=== PATIENT | female | born 1995 | race Caucasian/White ===

== ENCOUNTER 2017-04-26 18:31 | Emergency (ER) | payer BC ==
[2017-04-26 18:48] VITALS: BP 107/71
--- NOTE | 2017-04-26 20:11 | UC ---
Complaint Female HPI - HPI Summary HPI Summary: pain and burning with urination began today-no fever chills, nausea vomiting or back pain - History Of Current Complaint Chief Complaint: UCGU Stated Complaint: UTI Time Seen by Provider: 04/26/17 18:54 Hx Obtained From: Patient Hx Last Menstrual Period: 1 1/2 weeks ago ?: No Onset/Duration: Sudden Onset Timing: Constant Severity Initially: Moderate Severity Currently: Moderate Pain Intensity: 4 Pain Scale Used: 0-10 Numeric Character: Burning Aggravating Factor(s): Urination Alleviating Factor(s): Other Associated Signs And Symptoms: Positive: Negative - Allergies/Home Medications Allergies/Adverse Reactions: Allergies Allergy/AdvReac Type Severity Reaction Status Date / Time Amoxicillin Allergy Hives Verified 04/26/17 18:48 Bee Sting Allergy Swelling Uncoded 04/26/17 18:48 Home Medications: Home Medications Levothyroxine 1 tab PO DAILY 04/26/17 [History Confirmed 04/26/17] PMH/Surg Hx/FS Hx/Imm Hx Previously Healthy: Yes - Surgical History Surgical History: None - Family History Known Family History: Positive: None - Social History Occupation: Employed Full-time Lives: With Family Alcohol Use: Occasionally Substance Use Type: None Smoking Status (MU): Never Smoked Tobacco Review of Systems Constitutional: Negative Skin: Negative Eyes: Negative ENT: Negative Respiratory: Negative Cardiovascular: Negative Gastrointestinal: Negative Genitourinary: Negative, Dysuria, Hematuria, Frequency Motor: Negative Neurovascular: Negative Musculoskeletal: Negative Neurological: Negative Psychological: Negative Is Patient Immunocompromised?: No All Other Systems Reviewed And Are Negative: Yes Physical Exam Triage Information Reviewed: Yes Appearance: Well-Appearing, No Pain Distress, Well-Nourished Vital Signs: Initial Vital Signs Temp 98.6 F 04/26/17 18:44 Pulse 85 04/26/17 18:44 Resp 16 04/26/17 18:44 BP 107/71 04/26/17 18:44 Pulse Ox 100 04/26/17 18:44 Vital Signs Reviewed: Yes Eye Exam: Normal Eyes: Positive: Conjunctiva Clear ENT Exam: Normal ENT: Positive: Normal ENT inspection, Hearing grossly normal. Negative: Nasal congestion, Nasal drainage, Trismus, Muffled/hoarse voice Dental Exam: Normal Neck exam: Normal Neck: Positive: Supple, Nontender Respiratory Exam: Normal Respiratory: Positive: No respiratory distress, No accessory muscle use Cardiovascular Exam: Normal Cardiovascular: Positive: RRR, Brisk Capillary Refill Abdominal Exam: Normal Abdomen Description: Positive: Nontender, No Organomegaly, Soft. Negative: CVA Tenderness (R), CVA Tenderness (L), Hepatomegaly, McBurney's Point Tenderness, Peritoneal Signs, Pulsatile Mass, Splenomegaly Bowel Sounds: Positive: Present Musculoskeletal Exam: Normal Musculoskeletal: Positive: Strength Intact, ROM Intact Neurological Exam: Normal Neurological: Positive: Alert, Muscle Tone Normal Psychological Exam: Normal Skin Exam: Normal Diagnostics - Laboratory Diagnostic Studies Completed/Ordered: ua + leuk +blood Complaint Female Dx - Course Course Of Treatment: Macrobid, azo increase fluids, culture urine follow with pcp prn - Differential Dx/Diagnosis Differential Diagnosis/HQI/PQRI: Pelvic Inflammatory Disease, , Renal Colic, Sexually Transmitted Disease, Ureteral Stone, Urinary Tract Infection Provider Diagnoses: UTI Discharge - Discharge Plan Condition: Stable Disposition: HOME Prescriptions: Nitrofurantoin Monohyd Macro [Macrobid] 100 mg PO BID #20 cap Phenazopyridine TAB* [Pyridium 100 mg TAB*] 100 mg PO TID PRN #6 tab PRN Reason: urinary burning Patient Education Materials: Urinary Tract Infection in Women (ED) Referrals: [facility] [Outside] - If Needed
--- NOTE | 2017-04-28 17:07 | UC ---
Progress - Progress Note Progress Note: NO CHANGE
== END 2017-04-26 20:26 | disposition home or self-care (01) ==
LOC: UCEAST 18:31
DX: N39.0 Urinary tract infection, site not specified (principal); B96.20 Unspecified Escherichia coli [E. coli] as the cause of diseases classified elsewhere; R31.9 Hematuria, unspecified; Z32.02 Encounter for pregnancy test, result negative; Z88.1 Allergy status to other antibiotic agents; Z91.030 Bee allergy status
CPT/HCPCS: 81003; 84702; 87077; 87086; 87186; 99212; G0463

== ENCOUNTER 2017-06-10 08:16 | Emergency (ER) | payer BC ==
[2017-06-10] MEDS ORDERED: Ketorolac INJ* 30 MG/ML 1 ML VIAL IV ONE (09:22)
[2017-06-10] MEDS ORDERED: NS 0.9% 1000 ML* 1,000 ML IV ONE (09:22)
[2017-06-10] MEDS ORDERED: Metoclopramide IV* 5 MG/ML 2 ML VIAL IV ONE (09:22)
[2017-06-10 09:44] LABS: Hematocrit 41 % (35-47); Hemoglobin 14.2 g/dl (12.0-16.0); Mean Corpuscular HGB Conc 35 g/dl (31-36); Mean Corpuscular Hemoglobin 29 pg (27-31); Mean Corpuscular Volume 85 fL (80-97); Mean Platelet Volume 9 um3 (7.4-10.4); Red Blood Count 4.87 10^6/ul (4.0-5.4); Red Cell Distribution Width 13 % (10.5-15); White Blood Count 4.5 10^3/ul (3.5-10.8)
[2017-06-10 09:58] LABS: Urine Bacteria Absent (Absent); Urine Bilirubin Negative (Negative); Urine Glucose Negative (Negative); Urine Nitrite Negative (Negative)
[2017-06-10 10:04] LABS: ALT 14 U/L (7-52); AST 16 U/L (13-39); Alkaline Phosphatase 77 U/L (34-104); Anion Gap 12 mmol/L (2-11); BUN/Creatinine Ratio 12.5 (8-20); Blood Urea Nitrogen 10 mg/dL (6-24); CO2 Carbon Dioxide 20 mmol/L (22-32); Calcium 8.7 mg/dL (8.6-10.3); Chloride 98 mmol/L (101-111); EGFR African American 115.4 (>60); EGFR Non-African American 89.7 (>60); Glucose 77 mg/dL (70-100); Lipase 11 U/L (11.0-82.0); Magnesium 1.7 mg/dL (1.9-2.7); Potassium 3.2 mmol/L (3.5-5.0); Sodium 130 mmol/L (133-145)
[2017-06-10] MEDS ORDERED: Iohexol 300* (CONTRAST) 10 ML SDV IV ONE (10:30)
[2017-06-10] MEDS ORDERED: Potassium Chlor TAB* 20 MEQ TAB.ER PO ONE (11:09)
[2017-06-10] MEDS ORDERED: Diphenoxylat/Atrop 2.5-0.025M* 1 TAB PO ONE (11:23)
--- NOTE | 2017-06-10 12:20 | RAD ---
INDICATION: Abdominal pain. Nausea and diarrhea. COMPARISON: None TECHNIQUE: Axial source images were obtained from the hemidiaphragms to the symphysis pubis following administration of oral and intravenous contrast. 85 mL Omnipaque 300 was utilized. Coronal and sagittal reconstructed images were acquired. Lung bases: The lung bases are clear. Liver: The liver is normal in size. There are no masses. There is no ductal dilatation. Gallbladder: There are no calcified gallstones. There is no evidence of wall thickening or pericholecystic fluid. Spleen: There is mild hepatomegaly. There is no focal mass. Pancreas: There is no focal pancreatic mass or ductal dilatation. Adrenal glands: There is no evidence of adrenal mass. Kidneys: The kidneys are normal in size and position. There are prompt nephrograms and there is prompt excretion bilaterally. There are no renal parenchymal masses. There is no evidence of nephrolithiasis. Adenopathy: There is no evidence of adenopathy by size criteria. There are small mesenteric lymph nodes Fluid collections: There is trace free fluid in the cul-de-sac. Vessels:There are no significant atherosclerotic changes involving the aorta. There is no focal aneurysm. The iliac vessels are normal in caliber. The IVC appears normal. GI tract: The upper GI tract is unremarkable. The terminal ileum, appendix, and cecum appear normal. The transverse colon is normal. There is minor mural thickening of the descending and sigmoid colon which may be related to mild colitis. There are no findings of obstruction or perforation. Pelvic organs: The uterus and adnexa appear normal Bladder: There are no bladder masses. Abdominal and pelvic soft tissues: The extraperitoneal abdominal and pelvic soft tissues appear normal.. Osseous structures: There are no acute osseous findings. Other: None IMPRESSION: 1. Mild splenomegaly. 2. Trace free fluid in the cul-de-sac. This is typically normal finding in a young woman. 3. Normal appendix. 4. Mild mural thickening of the descending and sigmoid colon may reflect a minor colitis.
[2017-06-10 13:01] VITALS: BP 123/78
--- NOTE | 2017-06-10 18:11 | ED ---
Sammy Reed Angela, scribed for Tj Schroeder MD on 06/10/17 at 0903 . Abdominal Pain/Female - HPI Summary HPI Summary: This pt is a 21 y/o female presenting to [facility] c/o right lower quadrant abd pain since yesterday approximately at 0400. Pt reports that prior to her abd pain she had nausea, sore throat, dizziness, headache, decreased appetite, diarrhea, and fever. Pt has taken tylenol the past few days with some relief, has not taken any today. She has had the flu vaccine. She denies any PMHx. - History of Current Complaint Chief Complaint: EDAbdPain Stated Complaint: RIGHT ABD PAIN Time Seen by Provider: 06/10/17 08:46 Hx Obtained From: Patient Hx Last Menstrual Period: 1 1/2 weeks ago ?: No Onset/Duration: Lasting Days, Still Present Timing: Days Severity Initially: Moderate Severity Currently: Moderate Pain Intensity: 6 Pain Scale Used: 0-10 Numeric Location: Discrete At: RLQ Radiates: No Associated Signs and Symptoms: Positive: Fever, Nausea, Diarrhea, Other: - sore throat, headache, dizziness, decreased appetite Allergies/Adverse Reactions: Allergies Allergy/AdvReac Type Severity Reaction Status Date / Time Amoxicillin Allergy Hives Verified 04/26/17 18:48 Bee Sting Allergy Swelling Uncoded 04/26/17 18:48 PMH/Surg Hx/FS Hx/Imm Hx Endocrine/Hematology History: Reports: Hx Thyroid Disease - was hyper, had ablation, now hypo Denies: Hx Diabetes Cardiovascular History: Denies: Hx Hypertension Respiratory History: Denies: Hx Asthma, Hx Chronic Obstructive Pulmonary Disease (COPD) GI History: Denies: Hx Ulcer Infectious Disease History: No Infectious Disease History: Denies: Hx Hepatitis, Hx Human Immunodeficiency Virus (HIV), History Other Infectious Disease, Traveled Outside the [place] in Last 30 Days - Family History Known Family History: Negative: Cardiac Disease, Hypertension - Social History Alcohol Use: Occasionally Substance Use Type: Reports: None Smoking Status (MU): Never Smoked Tobacco Review of Systems Positive: Fever, Other - decreased appetite Positive: Sore Throat Positive: Abdominal Pain, Diarrhea, Nausea Neurological: Other - dizziness Positive: Headache All Other Systems Reviewed And Are Negative: Yes Physical Exam Triage Information Reviewed: Yes Vital Signs On Initial Exam: Initial Vitals Temp Pulse Resp BP Pulse Ox 101.2 F 124 20 128/85 98 06/10/17 08:23 06/10/17 08:23 06/10/17 08:23 06/10/17 08:23 06/10/17 08:23 Vital Signs Reviewed: Yes Appearance: Positive: Well-Nourished Skin: Positive: Warm, Skin Color Reflects Adequate Perfusion, Dry Head/Face: Positive: Normal Head/Face Inspection Eyes: Positive: Normal ENT: Positive: Hearing grossly normal, Pharyngeal erythema - with no exudates. Negative: Tonsillar exudate Respiratory/Lung Sounds: Positive: Clear to Auscultation, Breath Sounds Present Cardiovascular: Positive: Normal, RRR Abdomen Description: Positive: Soft, Other: - RLQ tenderness on deep palpation Musculoskeletal: Positive: Normal, Strength/ROM Intact Neurological: Positive: Normal, Sensory/Motor Intact, Alert, Oriented to Person Place, Time Psychiatric: Positive: Normal Diagnostics - Vital Signs Vital Signs Temp Pulse Resp BP Pulse Ox 06/10/17 08:23 101.2 F 124 20 128/85 98 - Laboratory Result Diagrams: 06/10/17 09:30 06/10/17 09:30 Lab Statement: Any lab studies that have been ordered have been reviewed, and results considered in the medical decision making process. - CT Abdomnen/Pelvis CT CT Interpretation: Positive (See Comments) - IMPRESSION: 1. Mild splenomegaly. 2. Trace free fluid in the cul-de-sac. This is typically normal finding in a young woman. 3. Normal appendix. 4. Mild mural thickening of the desceding and sigmoid colon may reflect a minor colitis. ED physician has reviewed this radiology report and agrees. CT Interpretation Completed By: Radiologist Re-Evaluation - Re-Evaluation First Eval Re-Evaluation Time: 12:43 Comment: Pt is feeling better. I reviewed the CT and lab results with the pt. Abdominal Pain Fem Course/Dx - Course Course Of Treatment: Pt is a 21 y/o female who presents with right lower quadrant abd pain since yesterday approximately at 0400. Blood work and CT abdomen/pelvis were obtained. In the ED course, the pt received IV fluids, toradol, reglan, lomotil, and potassium chloride. Urine shows 1+ protein, 2+ ketones, 2+ blood, trace leukocyte esterase, 1+ WBC, 2+ RBC, present squamous epithelial cells. CT abd/pel shows 1. Mild splenomegaly. 2. Trace free fluid in the cul-de-sac. This is typically normal finding in a young woman. 3. Normal appendix. 4. Mild mural thickening of the desceding and sigmoid colon may reflect a minor colitis. On re-evaluation the pt is feeling better. She will be discharged home with diagnosis of acute gastroenteritis, viral syndrome. - Diagnoses Provider Diagnoses: Acute gastroenteritis, Viral syndrome Discharge - Discharge Plan Condition: Stable Disposition: HOME Prescriptions: Ondansetron [Zofran 8 MG Odt] 8 mg PO Q8HR PRN #20 tab PRN Reason: Nausea Patient Education Materials: Gastroenteritis (ED) Referrals: No Primary Care Phys,NOPCP [Primary Care Provider] - The documentation as recorded by the Sammy bassett Angela accurately reflects the service I personally performed and the decisions made by , Tj Schroeder MD.
== END 2017-06-10 13:00 | disposition home or self-care (01) ==
LOC: ED 08:16
DX: K52.9 Noninfective gastroenteritis and colitis, unspecified (principal); B34.9 Viral infection, unspecified; R50.9 Fever, unspecified; R10.31 Right lower quadrant pain; J02.9 Acute pharyngitis, unspecified; R11.0 Nausea; R19.7 Diarrhea, unspecified; R51 Headache; R42 Dizziness and giddiness
CPT/HCPCS: 36415; 74177; 80053; 81003; 81015; 83690; 83735; 84702; 85025; 86140; 87086; 87651; 99283; A9270-GY; J1885; J2765; Q9967

== ENCOUNTER 2018-08-01 09:51 | Emergency (ER) | payer BC ==
[2018-08-01 09:57] VITALS: BP 107/65
--- NOTE | 2018-08-01 10:20 | UC ---
Respiratory Complaint HPI - HPI Summary HPI Summary: 23 yo female presents with sinus pain/pressure/congestion, dry cough, and R>L ear pain for the last 2 weeks. She is currently 21 weeks . Has not been taking anything OTC. This is her first - has had no issue abdominal pain or vaginal bleeding. Denies fever, chills, sore throat, SOB, chest pain. - History of Current Complaint Chief Complaint: UCRespiratory Stated Complaint: COLD SYMPTOMS Time Seen by Provider: 08/01/18 10:20 Onset/Duration: Gradual Onset Timing: Constant Severity Initially: Mild Severity Currently: Mild Pain Intensity: 3 Pain Scale Used: 0-10 Numeric Character: Cough: Nonproductive - Allergies/Home Medications Allergies/Adverse Reactions: Allergies Allergy/AdvReac Type Severity Reaction Status Date / Time amoxicillin Allergy Hives Verified 08/01/18 09:58 Bee Sting Allergy Swelling Uncoded 04/26/17 18:48 PMH/Surg Hx/FS Hx/Imm Hx Endocrine History: Hypothyroidism - Surgical History Surgical History: None - Family History Known Family History: Positive: None Negative: Cardiac Disease, Hypertension - Social History Occupation: Employed Full-time Lives: With Family Alcohol Use: Occasionally Substance Use Type: None Smoking Status (MU): Never Smoked Tobacco Review of Systems All Other Systems Reviewed And Are Negative: Yes Constitutional: Positive: Negative Skin: Positive: Negative Eyes: Positive: Negative ENT: Positive: Nasal Discharge, Sinus Congestion, Sinus Pain/Tenderness Respiratory: Positive: Cough Cardiovascular: Positive: Negative Gastrointestinal: Positive: Negative Neurovascular: Positive: Negative Neurological: Positive: Negative Psychological: Positive: Negative Physical Exam - Summary Physical Exam Summary: GENERAL: NAD. WDWN. No pain distress. SKIN: No rashes, sores, lesions, or open wounds. HEENT: Head: AT/NC Eyes: EOM intact. Conjunctiva clear without inflammation or discharge. Ears: Hearing grossly normal. RIGHT TM with mild erythema and bulging. No canal edema or drainage. LEFT TM intact and WNL. No canal edema/ drainage Nose: Nasal mucosa mildly swollen and erythematous with yellow/ green discharge. TTP maxillary and frontal sinus. Positive post nasal drip Throat: Posterior oropharynx with moderate erythema. No exudates or tonsillar enlargement. Uvula midline. NECK: Supple. Nontender. No lymphadenopathy. CHEST: CTAB. No r/r/w. No accessory muscle use. Breathing comfortably and in no distress. CV: RRR. Without m/r/g. Pulses intact. NEURO: Alert. PSYCH: Age appropriate behavior. Triage Information Reviewed: Yes Vital Signs: Initial Vital Signs Temp 98.6 F 08/01/18 09:55 Pulse 90 08/01/18 09:55 Resp 17 08/01/18 09:55 BP 107/65 08/01/18 09:55 Pulse Ox 99 08/01/18 09:55 Laboratory Tests 08/01/18 10:27 Group A Strep Rapid Negative Vital Signs Reviewed: Yes Diagnostic Evaluation - Laboratory O2 Sat by Pulse Oximetry: 99 Respiratory Course/Dx - Course Course Of Treatment: Sinusitis. Right otitis media. - Differential Dx/Diagnosis Provider Diagnosis: Sinusitis, Right otitis media Discharge - Sign-Out/Discharge Documenting (check all that apply): Patient Departure All imaging exams completed and their final reports reviewed: No Studies - Discharge Plan Condition: Stable Disposition: HOME Prescriptions: Azithromycin TAB* [Zithromax TAB (Z-TERRY) 250 mg #6 tabs] 2 tab PO .TODAY, THEN 1 DAILY #1 terry Patient Education Materials: Sinusitis (ED) Referrals: No Primary Care Phys,NOPCP [Primary Care Provider] - Additional Instructions: If you develop a fever, shortness of breath, chest pain, new or worsening symptoms - please call your PCP or go to the ED. - Billing Disposition and Condition Condition: STABLE Disposition: Home
== END 2018-08-01 10:42 | disposition home or self-care (01) ==
LOC: UCEAST 09:51
DX: J32.9 Chronic sinusitis, unspecified (principal); H66.91 Otitis media, unspecified, right ear; Z88.0 Allergy status to penicillin; Z91.030 Bee allergy status
CPT/HCPCS: 87651; 99212; G0463

== ENCOUNTER 2018-08-11 19:59 | Emergency (ER) | payer BC ==
[2018-08-11 22:27] LABS: ABS Basophils 0 10^3/ul (0-0.2); ABS Eosinophils 0.1 10^3/ul (0-0.6); ABS Lymphocytes 1.7 10^3/ul (1.0-4.8); ABS Monocytes 0.3 10^3/ul (0-0.8); ABS Neutrophils 6.3 10^3/ul (1.5-7.7); ABS Nucleated RBC 0 10^3/ul; Hematocrit 40 % (35-47); Hemoglobin 13.8 g/dl (12.0-16.0); Lymphocyte % 20.1 %; Mean Corpuscular HGB Conc 35 g/dl (31-36); Mean Corpuscular Hemoglobin 30 pg (27-31); Mean Corpuscular Volume 86 fL (80-97); Nucleated Red Blood Cells % 0; Platelet Count 185 10^3/ul (150-450); Red Blood Count 4.59 10^6/ul (4.00-5.40); Red Cell Distribution Width 13 % (10.5-15); White Blood Count 8.5 10^3/ul (3.5-10.8)
--- NOTE | 2018-08-11 22:45 | ED ---
GI/ HPI - HPI Summary HPI Summary: This patient is a 23 year old F 22 weeks in her 2nd trimester ( 1, para 0, abortus 0) presenting to [facility] with a chief complaint of vaginal bleeding since 18:00 today. She saw blood when she wiped after urinating today. Patient reports cramping that feels like period cramps. Patient denies dizziness and lightheadedness. Patient reports a period-like bleed during the first trimester and light pink spotting on 07/22/2018. She says that she was told by a physician she has a low-lying placenta. Her last OB appointment was in June. Her last ultrasound was at 19 weeks . - History of Current Complaint Chief Complaint: EDOBProblems Time Seen by Provider: 08/11/18 22:36 Stated Complaint: 22 WKS PREG/BLEEDING Hx Obtained From: Patient Hx Last Menstrual Period: 1 1/2 weeks ago Onset/Duration: Started Hours Ago Pain Intensity: 0 Associated Signs and Symptoms: Negative: Dizziness, Other: - Lightheadedness Additional Signs & Symptoms: Positive: Other: - Cramping that feel like period cramps - Allergy/Home Medications Allergies/Adverse Reactions: Allergies Allergy/AdvReac Type Severity Reaction Status Date / Time amoxicillin Allergy Hives Verified 08/11/18 22:34 Bee Sting Allergy Swelling Uncoded 08/11/18 22:34 PMH/Surg Hx/FS Hx/Imm Hx Endocrine/Hematology History: Reports: Hx Thyroid Disease - was hyper, had ablation, now hypo Denies: Hx Diabetes Cardiovascular History: Denies: Hx Hypertension Respiratory History: Denies: Hx Asthma, Hx Chronic Obstructive Pulmonary Disease (COPD) GI History: Denies: Hx Ulcer - Immunization History Date of Tetanus Vaccine: unk Date of Influenza Vaccine: fall 2017 Infectious Disease History: No Infectious Disease History: Denies: Hx Hepatitis, Hx Human Immunodeficiency Virus (HIV), History Other Infectious Disease, Traveled Outside the [place] in Last 30 Days - Family History Known Family History: Negative: Cardiac Disease, Hypertension - Social History Alcohol Use: Occasionally Substance Use Type: Reports: None Smoking Status (MU): Never Smoked Tobacco Review of Systems Positive: other - Vaginal bleeding and cramping that feels like period cramps. Neurological: Other - Denies dizziness or lightheadedness All Other Systems Reviewed And Are Negative: Yes Physical Exam - Summary Physical Exam Summary: Appearance: Well-appearing, Well-nourished, lying in bed comfortably Skin: Warm, dry, no obvious rash Eyes: sclera anicteric, no conjunctival pallor ENT: mucous membranes moist, pharynx appears normal Neck: Supple, nontender Respiratory: Clear to auscultation, no signs of respiratory distress Cardiovascular: Normal S1, S2. No murmurs. Normal distal pulses in tibial and radial bilaterally. Abdomen: Soft, nontender, normal active bowel sounds present. Abdomen is gravid consistent with her dates, Fundal height is just above the Umbilicus . Musculoskeletal: Normal, Strength/ROM Intact Neurological: A&Ox3, awake and alert, mentation is normal, speech is fluent and appropriate Psychiatric: affect is normal, does not appear anxious or depressed Triage Information Reviewed: Yes Vital Signs On Initial Exam: Initial Vitals Temp Pulse Resp BP Pulse Ox 98.7 F 88 16 125/78 100 08/11/18 20:02 08/11/18 20:02 08/11/18 20:02 08/11/18 20:02 08/11/18 20:02 Vital Signs Reviewed: Yes Diagnostics - Vital Signs Vital Signs Temp Pulse Resp BP Pulse Ox 08/11/18 20:02 98.7 F 88 16 125/78 100 - Laboratory Lab Results: Lab Results 08/11/18 08/11/18 Range/Units 22:20 22:20 WBC 8.5 (3.5-10.8) 10^3/ul RBC 4.59 (4.00-5.40) 10^6/ul Hgb 13.8 (12.0-16.0) g/dl Hct 40 (35-47) % MCV 86 (80-97) fL MCH 30 (27-31) pg MCHC 35 (31-36) g/dl RDW 13 (10.5-15) % Plt Count 185 (150-450) 10^3/ul MPV 8.0 (7.4-10.4) fL Neut % (Auto) 74.3 % Lymph % (Auto) 20.1 % Cook % (Auto) 4.1 % Eos % (Auto) 1.0 % Baso % (Auto) 0.5 % Absolute Neuts (auto) 6.3 (1.5-7.7) 10^3/ul Absolute Lymphs (auto) 1.7 (1.0-4.8) 10^3/ul Absolute Monos (auto) 0.3 (0-0.8) 10^3/ul Absolute Eos (auto) 0.1 (0-0.6) 10^3/ul Absolute Basos (auto) 0 (0-0.2) 10^3/ul Absolute Nucleated RBC 0 10^3/ul Nucleated RBC % 0 Blood Type O Positive Antibody Screen Pending Result Diagrams: 08/11/18 22:20 08/11/18 22:20 Lab Statement: Any lab studies that have been ordered have been reviewed, and results considered in the medical decision making process. - Ultrasound No standard instances Ultrasound Interpretation Completed By: Radiologist Summary of Ultrasound Findings: US. 00:31. Unremarkable limited exam. ED Physician has reviewed this imaging report. GIGU Course/Dx - Course Course Of Treatment: This patient is a 23 year old F 22 weeks in her 2nd trimester ( 1, para 0, abortus 0) presenting to [facility] with a chief complaint of vaginal bleeding since 18:00 today. She saw blood when she wiped after urinating today. Patient reports cramping that feels like period cramps. Patient denies dizziness and lightheadedness. Patient reports a period-like bleed during the first trimester and light pink spotting on 07/22/2018. She says that she was told by a physician she has a low-lying placenta. Her last OB appointment was in June. Her last ultrasound was at 19 weeks . US found: 00:31. Unremarkable limited exam. The tests we did tonight did not show an imminent problems with the . I instructed the patient to contact her lpta in the morning to arrange a followup and avoid strenuous exercise until cleared by them. The patient understands and agrees. - Diagnoses Provider Diagnoses: Vaginal bleeding during - Physician Notifications Discussed Care Of Patient With: Lizbeth WYNN Time Discussed With Above Provider: 02:23 Instructed by Provider To: Have Pt Call For Appt. - Patient is stable and can be D/C home. Have the patient call for an appointment. Discharge - Sign-Out/Discharge Documenting (check all that apply): Patient Departure - Discharge Plan Condition: Good Disposition: HOME Patient Education Materials: (ED) Referrals: No Primary Care Phys,NOPCP [Primary Care Provider] - Additional Instructions: Contact your lpta in the morning to arrange followup. Avoid strenuous exercise until cleared by them. The tests we did tonight did not show an imminent problems with the . - Billing Disposition and Condition Condition: GOOD Disposition: Home - Attestation Statements Document Initiated by Jose Enriqueibe: Yes Documenting Scribe: Mendoza De Provider For Whom Delbert is Documenting (Include Credential): Dylan Sinclair MD Scribe Attestation: Mendoza Reed, scribed for Dylan Sinclair MD on 08/12/18 at 0413. Scribe Documentation Reviewed: Yes Provider Attestation: The documentation as recorded by the Mendoza bassett accurately reflects the service I personally performed and the decisions made by me, Dylan Sinclair MD Status of Scribe Document: Viewed
[2018-08-11 22:46] LABS: Albumin 3.7 g/dL (3.2-5.2); Albumin/Globulin Ratio 1.4 (1-3); BUN/Creatinine Ratio 16.1 (8-20); Calcium 9.5 mg/dL (8.6-10.3); Globulin 2.6 g/dL (2-4); Total Bilirubin 0.3 mg/dL (0.2-1.0); Total Protein 6.3 g/dL (6.4-8.9)
[2018-08-11 23:30] LABS: Urine Appearance Clear; Urine Bacteria Absent (Absent); Urine Bilirubin Negative (Negative); Urine Blood 1+ (Negative); Urine Color Yellow; Urine Glucose Negative (Negative); Urine Ketones Negative (Negative); Urine Nitrite Negative (Negative); Urine Protein Negative (Negative); Urine Red Blood Cell 2+(6-10/hpf) (Absent); Urine Specific Gravity 1.012 (1.010-1.030); Urine Urobilinogen Negative (Negative); Urine White Blood Cell 1+(6-10/hpf) (Absent)
[2018-08-12 01:36] VITALS: BP 120/72
== END 2018-08-12 01:35 | disposition home or self-care (01) ==
LOC: ED 19:59
DX: O46.92 Antepartum hemorrhage, unspecified, second trimester (principal); Z3A.22 22 weeks gestation of pregnancy; Z88.0 Allergy status to penicillin; Z91.030 Bee allergy status
CPT/HCPCS: 36415; 76815; 80053; 81003; 81015; 85025; 86850; 86900; 86901; 87086; 99282

== ENCOUNTER 2018-12-09 19:54 | Inpatient (IN) | payer BC ==
[2018-12-09] MEDS ORDERED: Nalbuphine* 10 MG/ML 1 ML VIAL IV ONE (21:05)
[2018-12-09] MEDS ORDERED: Buffered Lidocaine 1% SYRIN* 1 ML/SYRINGE INTRADERM ONE (21:05)
[2018-12-09] MEDS ORDERED: Lactated Ringers 1000 ML Bag* 1,000 ML IV ONE (21:05)
[2018-12-09] MEDS ORDERED: Promethazine INJ(RESTRICTED)* 25 MG/ML 1 ML VIAL IV ONE (21:05)
[2018-12-09 21:55] LABS: ABS Lymphocytes 1.2 10^3/ul (1.0-4.8); ABS Monocytes 0.5 10^3/ul (0-0.8); ABS Neutrophils 7.7 10^3/ul (1.5-7.7); Eosinophil % 0.5 %; Hematocrit 37 % (35-47); Hemoglobin 12.4 g/dL (12.0-16.0); Mean Corpuscular HGB Conc 34 g/dL (31-36); Mean Corpuscular Hemoglobin 26 pg (27-31); Mean Corpuscular Volume 77 fL (80-97); Mean Platelet Volume 8.5 fL (7.4-10.4); Platelet Count 179 10^3/uL (150-450); Red Blood Count 4.76 10^6 /uL (3.70-4.87); Red Cell Distribution Width 15 % (10.5-15); White Blood Count 9.5 10^3/uL (3.5-10.8)
[2018-12-09] MEDS ORDERED: Lactated Ringers 1000 ML Bag* 1,000 ML IV SCH (22:00)
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
--- NOTE | 2018-12-10 05:13 | PN ---
Progress Note - Progress Note Date of Service: 12/10/18 SOAP: Subjective: [Pt reports contractions and urge to void. Pt tried nitrous with no improvement in symptoms and requests epidural.] Objective: [FHR: 140bpm, + accels, occasional variables, moderate variability. Cervix: 8-9 /90/-1 bloody show] Assessment: [23 y.o. 39w6d EGA, active labor] Plan: [1) Epidural, Dr. Gonzalez notified and nitrous D/C'd 2) Reviewed R/B 3) Position changes for descent]
[2018-12-10] MEDS ORDERED: OBEPIDURAL* 250 ML EPIDURAL ONE (05:20)
[2018-12-10] MEDS ORDERED: Bupivacaine-MPF SPINAL* 7.5 MG/ML - 2ML AMP ONE (05:35)
[2018-12-10] MEDS ORDERED: Famotidine TAB* 20 MG PO PRN (06:13)
[2018-12-10] MEDS ORDERED: Lactated Ringers 1000 ML Bag* 1,000 ML IV ONE (06:13)
[2018-12-10] MEDS ORDERED: Sodium Citrate/Citric Acid* 15 ML UDC PO PRN (06:13)
[2018-12-10] MEDS ORDERED: Phenylephrine 40 MCG/ML SYRINGE IV PUSH PRN (06:13)
[2018-12-10] MEDS ORDERED: OBEPIDURAL* 250 ML EPIDURAL SCH (07:00)
[2018-12-10] MEDS ORDERED: Lactated Ringers 1000 ML Bag* 1,000 ML IV SCH ×2 (07:00→09:00)
[2018-12-10] MEDS ORDERED: Oxytocin in LR* 0 UNITS/0 ML BAG IVPB ONE (07:05)
[2018-12-10] MEDS ORDERED: Lidocaine 2% VISCOUS* 15 ML UDC ONE (07:18)
[2018-12-10] MEDS ORDERED: Witch Hazel PAD* JAR TOPICAL PRN (08:22)
[2018-12-10] MEDS ORDERED: Dibucaine 1% 28.35 GM TUBE PR PRN (08:22)
[2018-12-10] MEDS ORDERED: Glycerin ADULT SUPP PR PRN (08:22)
[2018-12-10] MEDS ORDERED: Lidocaine 2% VISCOUS* 15 ML UDC TOPICAL ONE (08:25)
--- NOTE | 2018-12-10 08:25 | PROCNOTE ---
[facility] OB: Delivery Note - Delivery A Date of : 12/10/18 Time of : 08:02 Sex: Male Score 1 Minute: 8 Score 5 Minutes: 9 Gestational Age in Weeks and Days at Delivery: 39 Weeks and 6 Days Delivery Method: Spontaneous Vaginal Labor: Spontaneous Did Patient attempt ?: N/A, No Previous Amniotic Fluid: Clear Estimated Blood Loss: 150 Anesthesia/Analgesia: ITF/Spinal for Labor Delivered By: Karlee Hodgson - Nursery Level of Nursery: Regular/Bedside - Perineum Perineal Injury: Perineal Laceration, 2nd Degree Perineal Repair: By Delivering Practioner - Events Delivery Events of Note: None Apply
[2018-12-10] MEDS: Docusate CAP* 100 MG PO SCH ×3 (10:00→21:13)
[2018-12-10] MEDS: Ibuprofen TAB* 600 MG PO PRN ×2 (10:00→21:13)
[2018-12-10] MEDS: Acetaminophen TAB* 325 MG PO PRN ×3 (12:30→21:13)
[2018-12-10] MEDS: Simethicone TAB* 80 MG TAB.CHEW PO SCH (21:29)
[2018-12-11] MEDS: Levothyroxine TAB* 100 MCG TAB PO SCH (05:14)
[2018-12-11] MEDS: Ibuprofen TAB* 600 MG PO PRN ×3 (05:15→21:36)
[2018-12-11 07:40] LABS: ABS Lymphocytes 1.6 10^3/ul (1.0-4.8); ABS Monocytes 0.6 10^3/ul (0-0.8); ABS Neutrophils 7.8 10^3/ul (1.5-7.7); Eosinophil % 0.5 %; Hematocrit 31 % (35-47); Hemoglobin 10.6 g/dL (12.0-16.0); Lymphocyte % 16.4 %; Mean Corpuscular HGB Conc 34 g/dL (31-36); Mean Corpuscular Hemoglobin 26 pg (27-31); Mean Corpuscular Volume 78 fL (80-97); Mean Platelet Volume 8.3 fL (7.4-10.4); Platelet Count 142 10^3/uL (150-450); Red Blood Count 4.01 10^6 /uL (3.70-4.87); Red Cell Distribution Width 15 % (10.5-15)
[2018-12-11] MEDS: Docusate CAP* 100 MG PO SCH ×3 (08:55→21:35)
[2018-12-11] MEDS ORDERED: Ferrous Gluconate TAB* 324 MG TAB PO SCH (09:00)
[2018-12-12] MEDS: Ibuprofen TAB* 600 MG PO PRN (07:10)
[2018-12-12] MEDS: Levothyroxine TAB* 100 MCG TAB PO SCH (07:10)
[2018-12-12] MEDS: Docusate CAP* 100 MG PO SCH (08:27)
[2018-12-12 08:37] VITALS: BP 122/67
== END 2018-12-12 10:00 | disposition home or self-care (01) | DRG 560 ==
LOC: MCHOBOUT 19:54 → MCHOB 20:45
PROVIDERS: ADMIT Midwife; ATTEND Midwife
PROC: 10E0XZZ Delivery of Products of Conception, External Approach (ICD-10-PCS; principal; 2018-12-10)
PROC: 4A1HXCZ Monitoring of Products of Conception, Cardiac Rate, External Approach (ICD-10-PCS; 2018-12-10)
PROC: 0KQM0ZZ Repair Perineum Muscle, Open Approach (ICD-10-PCS; 2018-12-10)
DX: O99.284 Endocrine, nutritional and metabolic diseases complicating childbirth (principal); Z37.0 Single live birth; E03.9 Hypothyroidism, unspecified; E05.00 Thyrotoxicosis with diffuse goiter without thyrotoxic crisis or storm; O70.1 Second degree perineal laceration during delivery; Z3A.39 39 weeks gestation of pregnancy; Z88.0 Allergy status to penicillin; Z91.030 Bee allergy status
CPT/HCPCS: 36415; 84112; 85025; 86850; 86900; 86901; A9270-GY; J2300; J2550

== ENCOUNTER 2019-06-05 12:45 | Emergency (ER) | payer BC ==
--- OUTSIDE RECORDS SUMMARY | 2019-06-05 13:22 | XMS REPORT | Continuity of Care Document ---
:1995 External Reference #:[id number] Author Name TRACIE Vela Address [address] [place] [address] Care Team Providers Name Role Phone Daniela Fuentes M.D. 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 Problems Description No Information Available Social History Type Date Description Comments Sex Unknown Tobacco Use Start: Unknown Never Smoked Cigarettes ETOH Use Occasional Exercise Type/Frequency Exercises sporadically Allergies, Adverse Reactions, Alerts Active Allergies Reaction Severity Comments Date Amoxicillin 05/22/2019 Bee Sting 05/22/2019 Medications Active Medications SIG Qnty Indications Ordering Provider Date Azithromycin take 2 tablets 6tabs J01.90 TRACIE Vela 05/22/2019 250mg by mouth today Tablets then take 1 tablet daily for next 4 days Levothyroxine Sodium 1 by mouth every 30tabs E03.9 TRACIE Vela 00/00 /0000 day 100mcg Tablets Immunizations Description No Information Available Vital Signs Date Vital Result Comment 05/22/2019 3:30pm BP Systolic 98 mmHg BP Diastolic 54 mmHg Heart Rate 74 /min Body Temperature 98.1 F Respiratory Rate 16 /min Height 64.5 inches 5'4.50" Weight 150.00 lb BMI (Body Mass Index) 25.3 kg/m2 Results Test Date Facility Test Result H/L Range Note CBC Electronic ([facility] New) 05/22/2019 [facility] WBC 5.69 4.0-10.0 (607)- - RBC 4.85 3.93-6.0 Hemoglobin ([facility]/CMC/CTX) 13.8 g/dL 12.0-17.0 Hematocrit ([facility]/CMC/CTX) 40.7 % 35.0-50.0 Mean Corpuscular Vol 83.9 fL 80-95 Mean Corpuscular Hemoglobin 28.5 pg 25.6-32.2 Mean Corpuscular Hemo Concen 33.9 g/dL 32.2-36.0 Platelets 188 10^3/ul 163-400 RDW-CV 13.2 11.6-14.4 Mean Platelet Volume 11.0 fL 8.0-12.4 Absolute Neutrophils BLD 4.04 1.56-6.13 Absolute Lymphocytes 1.31 1.18-3.74 Absolute Monocytes BLD Auto 0.27 0.24-0.82 Absolute Eos Blood 0.05 0.04-0.54 Absolute Basophils 0.01 0.01-0.08 Neutrophil % 71.0 % High 34.0-70.0 Lymph% 23.0 % 20.0-52.0 Monocytes % 4.7 % Low 5.0-12.0 Eos % 0.9 % 0.7-7.0 Basophil% 0.2 % 0-1.2 Laboratory test 05/22/2019 [facility] [id number] <pending> finding [address] [place] [address] (679)- - [id number] Milk <pending> Procedures Description No Information Available Medical Devices Description No Information Available Encounters Description No Information Available Assessments Date Code Description Provider 05/22/2019 J01.90 Acute sinusitis, unspecified Jane Francois [facility] 05/22/2019 E03.9 Hypothyroidism, unspecified Jane Francois [facility] 05/22/2019 R19.7 Diarrhea, unspecified Jane Francois [facility] Plan of Treatment 05/22/2019 - [facility] Acute sinusitis, unspecifiedNew Medication: Azithromycin 250 mg - take 2 tablets by mouth today then take 1 tablet daily for next 4 daysComments:Inc fluids/restCall if sx worsen/bdtduqdE75.9 Hypothyroidism, unspecifiedComments:Will resume thyroid medication and retest in 2-3 monthsCall if sx worsenFollow up:Followup:. (Follow up)R19.7 Diarrhea, unspecifiedComments:F\\u pending labs, will consider stool tests if labs are negativeFollow up:Followup:. (Follow up) Functional Status Description No Information Available Mental Status Description No Information Available Referrals Description No Information Available
[2019-06-05 14:06] LABS: ABS Lymphocytes 1.2 10^3/ul (1.0-4.8); ABS Monocytes 0.3 10^3/ul (0-0.8); ABS Neutrophils 2.9 10^3/ul (1.5-7.7); Eosinophil % 0.5 %; Hematocrit 41 % (35-47); Hemoglobin 14.3 g/dL (12.0-16.0); Lymphocyte % 27.5 %; Mean Corpuscular HGB Conc 35 g/dL (31-36); Mean Corpuscular Hemoglobin 29 pg (27-31); Mean Corpuscular Volume 83 fL (80-97); Mean Platelet Volume 8.5 fL (7.4-10.4); Nucleated Red Blood Cells % 0.1; Platelet Count 177 10^3/uL (150-450); Red Cell Distribution Width 14 % (10-15); White Blood Count 4.4 10^3/uL (3.5-10.8)
[2019-06-05 14:13] LABS: INR 1.11 (0.82-1.09)
[2019-06-05 14:28] LABS: Albumin 4.5 g/dL (3.2-5.2); BUN/Creatinine Ratio 18.8 (8-20); CRP High Sensitivity 0.49 mg/L (<2.00); Calcium 9.1 mg/dL (8.6-10.3); EGFR African American 99.4 (>60); EGFR Non-African American 82.2 (>60); Globulin 2.2 g/dL (2-4); Potassium 3.5 mmol/L (3.5-5.0); Total Bilirubin 0.7 mg/dL (0.2-1.0); Total Protein 6.7 g/dL (6.4-8.9)
[2019-06-05 14:52] LABS: Urine Appearance Cloudy; Urine Bacteria Absent (Absent); Urine Bilirubin Negative (Negative); Urine Blood 2+ (Negative); Urine Color Yellow; Urine Glucose Negative (Negative); Urine Ketones Trace (Negative); Urine Nitrite Negative (Negative); Urine Protein Negative (Negative); Urine Red Blood Cell 2+(6-10/hpf) (Absent); Urine Specific Gravity 1.028 (1.010-1.030); Urine Squamous Epithelial Cell Present (Absent); Urine Urobilinogen Negative (Negative); Urine White Blood Cell Trace(0-5/hpf) (Absent)
[2019-06-05] MEDS ORDERED: Ondansetron INJ* 2 MG/ML VIAL IV ONE (15:59)
[2019-06-05] MEDS ORDERED: Ketorolac INJ* 30 MG/ML 1 ML VIAL IV PUSH ONE (15:59)
[2019-06-05] MEDS ORDERED: diPHENhydraMINE PO* 25 MG PO ONE (15:59)
[2019-06-05] MEDS ORDERED: NS 0.9% 1000 ML** 1,000 ML IV ONE (16:00)
--- NOTE | 2019-06-05 16:36 | ED ---
Headache - HPI Summary HPI Summary: Pt. is a 23 y.o female who presents to the ER for headache and pressure behind her left eye x 5 days. Pt. denies past medical hx. Denies hx of migraines. Pt. states on Saturday she woke up early and noted difficulty seeing out of left eye. Pt. states this last about 3 minutes and then resolved. Since she has noted a left sided headache and pain/pressure behind her left eye. Pt. notes intermittent blurry vision from left eye. Pt. states she saw her senior agricultural assistant on Saturday and had a complete workup done which pt. states was normal. Pt. notes her IOP was checked and was normal. Pt. denies recent illness , fever, cough, sinus congestion, sore throat, numbness, tingling, or weakness. She does not mild pain to her right later neck. Sxs are moderate in severity. No current modifying factors. Pt. currently denies vision change in the ED. - History Of Current Complaint Chief Complaint: EDHeadache Stated Complaint: LEFT FACE NUMBNESS/HEAD PRESSURE PER PT Time Seen by Provider: 06/05/19 15:30 Hx Obtained From: Patient Hx Last Menstrual Period: 1 1/2 weeks ago - Allergies/Home Medications Allergies/Adverse Reactions: Allergies Allergy/AdvReac Type Severity Reaction Status Date / Time bee venom protein (honey bee) Allergy Severe Swelling Verified 06/05/19 12:50 amoxicillin AdvReac Hives Verified 06/05/19 12:50 Home Medications: Home Medications Levothyroxine TAB* [Synthroid TAB*] 100 mcg PO DAILY 06/05/19 [History Confirmed 06/05/19] PMH/Surg Hx/FS Hx/Imm Hx Previously Healthy: Yes Endocrine/Hematology History: Reports: Hx Thyroid Disease - was hyper (Graves), had ablation, now hypo Denies: Hx Diabetes Cardiovascular History: Denies: Hx Hypertension Respiratory History: Denies: Hx Asthma, Hx Chronic Obstructive Pulmonary Disease (COPD) GI History: Denies: Hx Ulcer - Immunization History Date of Tetanus Vaccine: unk Date of Influenza Vaccine: fall 2017 Infectious Disease History: No Infectious Disease History: Denies: Hx Hepatitis, Hx Human Immunodeficiency Virus (HIV), History Other Infectious Disease, Traveled Outside the [place] in Last 30 Days - Family History Known Family History: Positive: Non-Contributory Negative: Cardiac Disease, Hypertension - Social History Occupation: Unemployed Lives: With Family Alcohol Use: None Alcohol Amount: social prior to Substance Use Type: Reports: None Smoking Status (MU): Never Smoked Tobacco Review of Systems Constitutional: Negative Negative: Fever Positive: Blurred Vision ENT: Negative Cardiovascular: Negative Respiratory: Negative Gastrointestinal: Negative Genitourinary: Negative Musculoskeletal: Negative Skin: Negative Negative: Rash Positive: Headache. Negative: Weakness, Paresthesia, Numbness, Syncope, Slurred Speech All Other Systems Reviewed And Are Negative: Yes Physical Exam Triage Information Reviewed: Yes Vital Signs On Initial Exam: Initial Vitals Temp Pulse Resp BP Pulse Ox 98.1 F 97 17 156/119 99 06/05/19 12:48 06/05/19 12:48 06/05/19 12:48 06/05/19 12:48 06/05/19 12:48 Vital Signs Reviewed: Yes Appearance: Positive: Well-Appearing - Pt. lying in bed in NAD. Pleasant. Skin: Positive: Warm, Dry Head/Face: Positive: Normal Head/Face Inspection Eyes: Positive: Normal, EOMI, AQUILINO, Conjunctiva Clear, Other: - Confrontation is normal. Neck: Positive: Supple, Nontender. Negative: Nuchal Rigidity Respiratory/Lung Sounds: Positive: Clear to Auscultation, Breath Sounds Present Cardiovascular: Positive: Normal, RRR Musculoskeletal: Positive: Normal, Strength/ROM Intact Neurological: Positive: Normal, Sensory/Motor Intact, Alert, Oriented to Person Place, Time, CN Intact II-III, Finger to Nose - normal, Facial Symmetry, Speech Normal. Negative: Cerebellar Dysfunction, Disoriented, Facial Droop, Pronator Drift Present Procedures - Sedation Patient Received Moderate/Deep Sedation with Procedure: No Diagnostics - Vital Signs Vital Signs Temp Pulse Resp BP Pulse Ox 06/05/19 14:35 98.4 F 80 16 134/87 99 06/05/19 12:48 98.1 F 97 17 156/119 99 - Laboratory Lab Results: Lab Results 06/05/19 06/05/19 06/05/19 Range/Units 13:55 13:55 13:55 WBC 4.4 (3.5-10.8) 10^3/uL RBC 4.90 H (3.70-4.87) 10^6 /uL Hgb 14.3 (12.0-16.0) g/dL Hct 41 (35-47) % MCV 83 (80-97) fL MCH 29 (27-31) pg MCHC 35 (31-36) g/dL RDW 14 (10-15) % Plt Count 177 (150-450) 10^3/uL MPV 8.5 (7.4-10.4) fL Neut % (Auto) 65.0 % Lymph % (Auto) 27.5 % [place] % (Auto) 6.6 % Eos % (Auto) 0.5 % Baso % (Auto) 0.4 % Absolute Neuts (auto) 2.9 (1.5-7.7) 10^3/ul Absolute Lymphs (auto) 1.2 (1.0-4.8) 10^3/ul Absolute Monos (auto) 0.3 (0-0.8) 10^3/ul Absolute Eos (auto) 0.0 (0-0.6) 10^3/ul Absolute Basos (auto) 0.0 (0-0.2) 10^3/ul Absolute Nucleated RBC 0.0 10^3/ul Nucleated RBC % 0.1 INR (Anticoag Therapy) 1.11 H (0.82-1.09) Sodium 140 (135-145) mmol/L Potassium 3.5 (3.5-5.0) mmol/L Chloride 107 (101-111) mmol/L Carbon Dioxide 27 (22-32) mmol/L Anion Gap 6 (2-11) mmol/L BUN 16 (6-24) mg/dL Creatinine 0.85 (0.51-0.95) mg/dL Est GFR ( Amer) 99.4 (>60) Est GFR (Non-Af Amer) 82.2 (>60) BUN/Creatinine Ratio 18.8 (8-20) Glucose 88 (70-100) mg/dL Lactic Acid (0.5-2.0) mmol/L Calcium 9.1 (8.6-10.3) mg/dL Total Bilirubin 0.70 (0.2-1.0) mg/dL AST 13 (13-39) U/L ALT 9 (7-52) U/L Alkaline Phosphatase 61 (34-104) U/L C-React Prot High Sens 0.49 (<2.00) mg/L Total Protein 6.7 (6.4-8.9) g/dL Albumin 4.5 (3.2-5.2) g/dL Globulin 2.2 (2-4) g/dL Albumin/Globulin Ratio 2.0 (1-3) Urine Color Urine Appearance Urine pH (5-9) Ur Specific [place] (1.010-1.030) Urine Protein (Negative) Urine Ketones (Negative) Urine Blood (Negative) Urine Nitrate (Negative) Urine Bilirubin (Negative) Urine Urobilinogen (Negative) Ur Leukocyte Esterase (Negative) Urine WBC (Auto) (Absent) Urine RBC (Auto) (Absent) Ur Squamous Epith Cells (Absent) Urine Bacteria (Absent) Urine Glucose (Negative) 06/05/19 06/05/19 Range/Units 13:55 14:20 WBC (3.5-10.8) 10^3/uL RBC (3.70-4.87) 10^6 /uL Hgb (12.0-16.0) g/dL Hct (35-47) % MCV (80-97) fL MCH (27-31) pg MCHC (31-36) g/dL RDW (10-15) % Plt Count (150-450) 10^3/uL MPV (7.4-10.4) fL Neut % (Auto) % Lymph % (Auto) % [place] % (Auto) % Eos % (Auto) % Baso % (Auto) % Absolute Neuts (auto) (1.5-7.7) 10^3/ul Absolute Lymphs (auto) (1.0-4.8) 10^3/ul Absolute Monos (auto) (0-0.8) 10^3/ul Absolute Eos (auto) (0-0.6) 10^3/ul Absolute Basos (auto) (0-0.2) 10^3/ul Absolute Nucleated RBC 10^3/ul Nucleated RBC % INR (Anticoag Therapy) (0.82-1.09) Sodium (135-145) mmol/L Potassium (3.5-5.0) mmol/L Chloride (101-111) mmol/L Carbon Dioxide (22-32) mmol/L Anion Gap (2-11) mmol/L BUN (6-24) mg/dL Creatinine (0.51-0.95) mg/dL Est GFR ( Amer) (>60) Est GFR (Non-Af Amer) (>60) BUN/Creatinine Ratio (8-20) Glucose (70-100) mg/dL Lactic Acid 0.7 (0.5-2.0) mmol/L Calcium (8.6-10.3) mg/dL Total Bilirubin (0.2-1.0) mg/dL AST (13-39) U/L ALT (7-52) U/L Alkaline Phosphatase (34-104) U/L C-React Prot High Sens (<2.00) mg/L Total Protein (6.4-8.9) g/dL Albumin (3.2-5.2) g/dL Globulin (2-4) g/dL Albumin/Globulin Ratio (1-3) Urine Color Yellow Urine Appearance Cloudy Urine pH 5.0 (5-9) Ur Specific [place] 1.028 (1.010-1.030) Urine Protein Negative (Negative) Urine Ketones Trace A (Negative) Urine Blood 2+ A (Negative) Urine Nitrate Negative (Negative) Urine Bilirubin Negative (Negative) Urine Urobilinogen Negative (Negative) Ur Leukocyte Esterase Negative (Negative) Urine WBC (Auto) Trace(0-5/hpf) (Absent) Urine RBC (Auto) 2+(6-10/hpf) A (Absent) Ur Squamous Epith Cells Present A (Absent) Urine Bacteria Absent (Absent) Urine Glucose Negative (Negative) Result Diagrams: 06/05/19 13:55 06/05/19 13:55 Lab Statement: Any lab studies that have been ordered have been reviewed, and results considered in the medical decision making process. Headache Course/Dx - Course Course Of Treatment: Pt. with left eye pressure and headache. She noes intermittent blurriness but currently denies any vison changes in ED. Neuro exam is unremarkable. Basic labs obtained in triage which are unremarkable. BP initially high but improved to normal on rechecks. Case discussed with Dr. Jaramillo who does not recommend any imaging today. Pt. states she had a full ophtho. workup this week and had normal IOPs. Pt. treated with migraine cocktail and is feeling better on recheck and not pain is 1/10. Pt. still c/o pressure behind left eye. Pt. was examined by Dr. Jaramillo as well. He recommends dc and pt. to f.u with neurology for further evaluation. Pt. comfortable with dc home. Will return to ER if sxs change or worsen. - Diagnoses Differential Diagnosis/HQI/PQRI: Meningitis, Migraine, Sinus Headache, Tension Headache, Viral Syndrome Provider Diagnoses: Ocular migraine Discharge ED - Sign-Out/Discharge Documenting (check all that apply): Patient Departure - Discharge Plan Condition: Improved Disposition: HOME Patient Education Materials: Migraine Headache (ED), Ocular Migraine (ED) Referrals: Daniela Fuentes MD [Primary Care Provider] - Angel Luis Landin MD [Medical Doctor] - Additional Instructions: Call neurology and PCP tomorrow for a close follow up appointment Increase fluids and rest Return to ER if symptoms change or worsen - Billing Disposition and Condition Condition: IMPROVED Disposition: Home - Attestation Statements Provider Attestation: I was available for consult. This patient was seen by the LEONARD. The patient was not presented to, seen by, or examined by me. David Jaramillo MD
[2019-06-05] MEDS ORDERED: Tetracaine 0.5% OPTH.SOL 4 ML* 1 DROP BTL LEFT EYE ONE (16:39)
[2019-06-05] MEDS ORDERED: diPHENhydraMINE IV* 50 MG/ML 1 ml VIAL (BENADRYL) ONE (16:42)
[2019-06-05] MEDS ORDERED: diPHENhydraMINE IV* 50 MG/ML 1 ml VIAL (BENADRYL) IV ONE (16:42)
[2019-06-05 18:49] VITALS: BP 127/68
== END 2019-06-05 18:53 | disposition home or self-care (01) ==
LOC: ED 12:45
DX: G43.809 Other migraine, not intractable, without status migrainosus (principal); E03.9 Hypothyroidism, unspecified; Z79.890 Hormone replacement therapy; Z88.0 Allergy status to penicillin
CPT/HCPCS: 36415; 80053; 81003; 81015; 83605; 85025; 85610; 86141; 87086; 96361; 96374; 96375; 99282; A9270-GY; J1200; J1885; J2405

== ENCOUNTER 2019-10-09 08:10 | Day surgery (SDC) | payer BC ==
[~2019-10-09 08:10] MED LIST: Buffered Lidocaine 1% SYRIN* 1 ML/SYRINGE INTRADERM ONE; GENTAMICIN ADULT IVPB ONE; Lactated Ringers 1000 ML Bag* 1,000 ML IV SCH; NS 0.9% IVPB ONE
[2019-10-09] MEDS ORDERED: Clindamycin 900 MG/D5W BAG(*) 900 MG/50 ML BAG IVPB ONE (09:16)
[2019-10-09] MEDS ORDERED: Buffered Lidocaine 1% SYRIN* 1 ML/SYRINGE INTRADERM ONE (09:35)
[2019-10-09] MEDS ORDERED: Rocuronium* 10 MG/ML VIAL ONE (10:31)
[2019-10-09] MEDS ORDERED: Ondansetron INJ* 2 MG/ML VIAL ONE (10:31)
[2019-10-09] MEDS ORDERED: Midazolam* 1 MG/ML 2 ML VIAL (2 MG) ONE (10:31)
[2019-10-09] MEDS ORDERED: fentaNYL* 50 MCG/ML 2 ML VIAL (100 MCG VIAL) ONE (10:31)
[2019-10-09] MEDS ORDERED: Ketorolac INJ* 30 MG/ML 1 ML VIAL ONE (10:31)
[2019-10-09] MEDS ORDERED: Glycopyrrolate IV* 0.2 MG/ML 1 ML VIAL ONE (10:31)
[2019-10-09] MEDS ORDERED: Dexamethasone IV* 4 MG/ML 1 ML (4 MG) ONE (10:31)
[2019-10-09] MEDS ORDERED: Propofol* 10 MG/ML 20 ML BTL ONE (10:31)
[2019-10-09] MEDS ORDERED: Bupivacaine 0.5%* 50 ML MDV VIAL ONE (10:32)
[2019-10-09] MEDS ORDERED: fentaNYL* 50 MCG/ML 2 ML VIAL (100 MCG VIAL) IV PRN (11:35)
[2019-10-09] MEDS ORDERED: oxyCODONE TAB* 5 MG TAB PO PRN (11:35)
[2019-10-09] MEDS ORDERED: Naloxone* 0.4 MG/ML 1 ML VIAL IV PRN (11:35)
[2019-10-09] MEDS ORDERED: oxyCODONE TAB* 5 MG TAB ONE (12:46)
[2019-10-09 13:37] VITALS: BP 111/75
[2019-10-09] MEDS ORDERED: Sugammadex * 500 MG/5 ML VIAL IV PUSH ONE (13:46)
--- NOTE | 2019-10-10 02:19 | OP ---
CC: Dr. Klein of [facility]. OPERATIVE REPORT: DATE OF OPERATION: 10/09/19 DATE OF : [birth year] SURGEON: Jatinder Alcocer MD MEDIA SUPERVISOR: Dr. Klein. ANESTHESIA: General anesthetic with endotracheal intubation. PRE-OP DIAGNOSIS: Persistent and painful and large right ovarian cyst. POST-OP DIAGNOSIS: Persistent and painful and large right ovarian cyst. OPERATIVE PROCEDURE: Laparoscopic right ovarian cystectomy. ESTIMATED BLOOD LOSS: None. SPECIMENS SENT TO PATHOLOGY: Ovarian cyst wall. FLUIDS: She received 1200 cc of IV crystalloid fluid. URINE OUTPUT: 300 cc of clear urine. FINDINGS: An enlarged right 6 to 7 cm ovarian cyst with 2 adjacent simple cysts within the ovary. T hese were filled with a straw-color fluid with a smooth lining. The uterus was within normal limits. Fallopian tubes were normal bilaterally. The left ovary was normal. Bowel and bladder were normal. There were no complications. DESCRIPTION OF PROCEDURE: The patient was taken to the operating room where was identified. She was placed on the operating table where a general anesthetic with endotracheal intubation was obtained w ithout difficulty. She was then placed in the dorsal lithotomy position, prepped and draped in a nor mal sterile fashion. Attention was then brought down to the patient's perineum where the bladder was catheterized with a Dinero catheter and drained off clear urine. A sponge stick was then inserted int o the patient's vagina. Attention was then brought down to the patient's abdomen where a 1 cm infrau mbilical skin incision was made with a knife and carried to the underlying layer of fascia. The fasc ia was then grasped with Gokul clamps, brought up to the incision, and incised medially with a knife . Through this incision a Francesca clamp was used to confirm entry into the patient's abdomen through th e peritoneal cavity. The Gokul clamps and the fascia were replaced with 0 Polysorb sutures and thro ugh this incision a 5 mm blunt trocar was introduced. The balloon in the trocar was insufflated with 5 cc of air. The patient's abdomen was then insufflated with CO2 gas. A 5 mm scope was introduced through the trocar and the survey of the patient's pelvic anatomy revealed findings as noted above. Two other trocars were inserted at the right and left upper quadrants of the patient's abdomen under direct visualization. We then proceeded with our procedure. The ovarian cyst was cauterized at its surface and an incision was made at the ovarian cortex over the cyst and a straw color fluid was then suctioned from behind the cyst. Another cyst was noted within this cyst confirming that these were 2 follicular cysts adjacent to each other. I then proceeded to separate the cyst wall from both cyst s using sharp and blunt dissection. Portions of the cyst wall were sent to Pathology. Once the cyst s were emptied and the cyst wall were removed, the areas that were not hemostatic within the cyst wer e cauterized with a unipolar cautery. Once we achieved hemostasis, the patient's surgical site and t he ovaries were irrigated with normal saline. Normal saline was then suctioned. There was no bleedi ng noted at the site of surgery. We then proceeded to remove the trocars from the patient's abdomen under direct visualization at the right and left upper quadrant. The trocar and the umbilicus was re moved by removing the air from its balloon. The fascial incision at the umbilicus was closed with 0- Polysorb suture in a running fashion and the skin incisions were closed with 4-0 Monocryl at the umbi licus with a subcuticular stitch. The right and left upper quadrant incisions were closed with 4-0 M onocryl with a near-far suture. The patient tolerated the procedure well. Sponge, lap, and needle c ounts were correct x2. She was then transferred to recovery room area in stable condition. [id number]/[facility] #: [id number]
== END 2019-10-09 13:40 | disposition home or self-care (01) ==
LOC: OR 08:10
PROVIDERS: ATTEND Obstetrics & Gynecology
DX: N83.201 Unspecified ovarian cyst, right side (principal); R10.31 Right lower quadrant pain; E03.9 Hypothyroidism, unspecified; Z88.1 Allergy status to other antibiotic agents
CPT/HCPCS: 88305; A9270-GY; J1100; J1580; J1885; J2250; J2405; J2704; J3010; J3490